=== PATIENT | male | born 1970 | race Two or more races ===

== ENCOUNTER 2018-02-19 13:18 | Observation (INO) | payer SELFPAY ==
[~2018-02-19] VITALS: Ht 162.6 cm; Wt 93.9 kg
--- NOTE | 2018-02-19 13:39 | PHYS DOC ---
Adult General Chief Complaint Chief Complaint: NEURO SYMPTOMS/DEFICITS HPI HPI Patient is a 47 year old male who presents with left upper extremity paresthesia described as a numbness for the entire extremity from the shoulder to the fingers, no dermatomal band described. 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 Patient denies any weakness in the upper or lower extremity. Reports that the numbness is improving over time. This started at 11: 30 this morning. Denies any head injury nor headache nor difficulty seeing. Denies any previous history of this. Patient denies any slurring of speech however with the patient reports that he did have some slurring of speech. Patient also reports that he has some dizziness early on while this was occurring along with a dry mouth. Patient reports that the symptoms seem to be improving over time. Review of Systems Review of Systems Constitutional: Denies fever or chills [] Eyes: Denies change in visual acuity, redness, or eye pain [] HENT: Denies nasal congestion or sore throat [] Respiratory: Denies cough or shortness of breath [] Cardiovascular: No chest pain or palpitations[] GI: Denies abdominal pain, nausea, vomiting, bloody stools or diarrhea [] : Denies dysuria or hematuria [] Musculoskeletal: Denies back pain or joint pain [] Integument: Denies rash or skin lesions [] Neurologic: See history of present illness[] Endocrine: Denies polyuria or polydipsia [] All other systems were reviewed and found to be within normal limits, except as documented in this note. Allergies Allergies Allergies Coded Allergies Type Severity Reaction Last Updated Verified No Known Drug Allergies 02/19/18 No Physical Exam Physical Exam Constitutional: Well developed, well nourished, no acute distress, non-toxic appearance. [] HENT: Normocephalic, atraumatic, bilateral external ears normal, oropharynx moist, no oral exudates, nose normal. [] Eyes: PERRLA, EOMI, conjunctiva normal, no discharge. [] Neck: Normal range of motion, no tenderness, supple, no stridor. [] Cardiovascular:Heart rate regular rhythm, +3/6 murmur [] Lungs & Thorax: Bilateral breath sounds clear to auscultation [] Abdomen: Bowel sounds normal, soft, no tenderness, no masses, no pulsatile masses. [] Skin: Warm, dry, no erythema, no rash. [] Back: No tenderness, no CVA tenderness. [] Extremities: No tenderness, no cyanosis, no clubbing, ROM intact, no edema. [] Neurologic: Alert and oriented X 3, normal motor function, normal sensory function, no focal deficits noted. [] Psychologic: Affect normal, judgement normal, mood normal. NIH stroke scale was 0 [] Current Patient Data Vital Signs Vital Signs Date Time Temp Pulse Resp B/P (MAP) Pulse Ox O2 Delivery O2 Flow Rate FiO2 02/19/18 14:30 92 21 97 02/19/18 13:23 98.4 179/91 (120) Room Air 98.4 Lab Values Laboratory Tests Test 02/19/18 13:54 02/19/18 13:55 02/19/18 14:04 Glucose (Fingerstick) 135 mg/dL (70-99) H White Blood Count 7.2 x10^3/uL (4.0-11.0) Red Blood Count 4.94 x10^6/uL (4.30-5.70) Hemoglobin 15.7 g/dL (13.0-17.5) Hematocrit 43.8 % (39.0-53.0) Mean Corpuscular Volume 89 fL (79-100) Mean Corpuscular Hemoglobin 32 pg (25-35) Mean Corpuscular Hemoglobin Concent 36 g/dL (31-37) Red Cell Distribution Width 12.8 % (11.5-14.5) Platelet Count 296 x10^3/uL (140-400) Prothrombin Time 13.1 SEC (11.7-14.0) Prothrombin Time INR 1.0 (0.8-1.1) PTT 31 SEC (24-38) Sodium Level 138 mmol/L (136-145) Potassium Level 3.5 mmol/L (3.5-5.1) Chloride Level 103 mmol/L (98-107) Carbon Dioxide Level 23 mmol/L (21-32) Anion Gap 12 (6-14) 18 mmol/L (6-14) H Blood Urea Nitrogen 15 mg/dL (8-26) Creatinine 0.8 mg/dL (0.7-1.3) Estimated GFR (Cockcroft-Gault) 103.2 Glucose Level 141 mg/dL (70-99) H 141 mg/dL (70-99) H Calcium Level 8.8 mg/dL (8.5-10.1) POC Hemoglobin 14.6 g/dL (14-18) POC Hematocrit 43 % (37-52) POC Sodium 140 mmol/L (135-145) POC Potassium 3.5 mmol/L (3.5-5.0) POC Chloride 104 mmol/L (98-110) POC Total CO2 22 mmol/L (23-32) L POC Blood Urea Nitrogen 14 mg/dL (8-26) POC Creatinine 0.7 mg/dL (0.5-1.4) POC Ionized Calcium (Radha) 1.16 mmol/L (1.13-1.32) Laboratory Tests 02/19/18 13:55 Laboratory Tests 02/19/18 13:55 02/19/18 14:04 EKG EKG EKG shows normal sinus rhythm, leftward axis, no ST elevation, no old EKG available for comparison, nonspecific ST-T wave changes.[] Radiology/Procedures Radiology/Procedures CT scan of the head showed no acute features [] Course & Med Decision Making Course & Med Decision Making Pertinent Labs and Imaging studies reviewed. (See chart for details) Medical decision making: No evidence of continued stroke symptoms, however concerned about TIA given reported speech abnormalities during this episode as witnessed by patient's . ED course: Patient arrived, was placed in bed, tolerated exam well. Patient was transferred to and from [place] without any complications. Patient remained stable in the emergency department. Patient did not meet criteria for thrombolytic therapy. Due to concern for TIA and given what was thought to be a murmur that patient had no previous information about, consultation was made with the hospitalist service for admission.[] Dragon Disclaimer Dragon Disclaimer This electronic medical record was generated, in whole or in part, using a voice recognition dictation system. Departure Departure Impression: Primary Impression: Transient ischemic attack Disposition: 09 ADMITTED INPATIENT Admitting Physician: Xie. Meeks Condition: STABLE ALEJANDRA GODOY DO Feb 19, 2018 13:39
[2018-02-19 14:03] LABS: HEMATOCRIT 43.8 % (39.0-53.0); HEMOGLOBIN 15.7 g/dL (13.0-17.5); RED BLOOD COUNT 4.94 x10^6/uL (4.30-5.70); RED CELL DISTRIBUTION WIDTH 12.8 % (11.5-14.5); WHITE BLOOD COUNT 7.2 x10^3/uL (4.0-11.0)
--- NOTE | 2018-02-19 14:07 | RAD ---
PQRS Compliance Statement: One or more of the following individualized dose reduction techniques were utilized for this examination: 1. Automated exposure control 2. Adjustment of the mA and/or kV according to patient size 3. Use of iterative reconstruction technique CT HEAD WITHOUT CONTRAST History: L ARM TINGLING SOME SLURRED SPEECH Comparison: None. Procedure: Axial images are obtained of the head from the skull base through the vertex without IV contrast. Findings: The ventricles and sulci are normal for the patient's age. No mass-effect, midline shift, hemorrhage, extra-axial fluid collection, or obvious acute infarction is identified. Basilar cisterns are patent. Bone windows demonstrate no acute calvarial abnormality. Mild mucosal thickening right maxillary sinus. Maxillary sinuses incompletely imaged. The other visualized paranasal sinuses are clear. Mastoid air cells are well aerated. IMPRESSION: No acute intracranial abnormality. Findings discussed with ALEJANDRA GODOY at 02/19/2018 1:59 PM. FOR INTERNAL CODING PURPOSES Critical result: RESULT CODE: (C) Electronically signed by: Fredo Nicholas MD (02/19/2018 2:04 PM) [id number]
[2018-02-19 14:08] LABS: CREATININE ISTAT 0.7 mg/dL (0.5-1.4); HEMOGLOBIN ISTAT 14.6 g/dL (14-18); ION CA ISTAT 1.16 mmol/L (1.13-1.32); POTASSIUM ISTAT 3.5 mmol/L (3.5-5.0)
[2018-02-19 14:14] LABS: PROTHROMBIN TIME PATIENT 13.1 SEC (11.7-14.0)
[2018-02-19 14:15] LABS: CALCIUM 8.8 mg/dL (8.5-10.1); CREATININE 0.8 mg/dL (0.7-1.3); GFR 103.2; POTASSIUM 3.5 mmol/L (3.5-5.1)
--- NOTE | 2018-02-19 15:16 | EKG ---
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
[2018-02-19] MEDS ORDERED: traMADol 50 MG TABLET PO PRN (16:30)
[2018-02-19] MEDS ORDERED: LABETALOL 20 MG/4 ML DISP.SYRIN. IVP PRN (16:30)
[2018-02-19] MEDS ORDERED: ACETAMINOPHEN 325 MG TABLET. PO PRN (16:30)
[2018-02-19] MEDS ORDERED: MORPHINE SULFATE 2 MG/ML VIAL. IV PRN (16:30)
[2018-02-19] MEDS ORDERED: ASPIRIN 325 MG TABLET PO ONE (16:30)
[2018-02-19] MEDS ORDERED: ONDANSETRON PF 4 MG/2 ML VIAL. IV PRN (16:30)
[2018-02-19] MEDS ORDERED: DOCUSATE SODIUM 100 MG CAPSULE. PO PRN (16:30)
--- NOTE | 2018-02-19 16:36 | PDOC1 ---
History and Physical Date of Admission Date of Admission 02/19/18 Identification/Chief Complaint Chief Complaint left arm numbness Source Source: Chart review, Patient History of Present Illness History of Present Illness Patient is a 47 year old male who presents with left upper extremity paresthesia described as a numbness for the entire extremity from the shoulder to the fingers. pt speak cambodian, Gf at bedside helps translation. PT HAS had intermittent left arm numbness and tingling for 1 week, worse today about 11.30am, lasting for 2 hours. He called her and she noticed he had slurry speech, for which pt explained as he did it when he was nervous, for a few minutes. Pt now back to normal, no ext weakness, no swallow problem, no vision or hearing change. no headache. head CT neg. no PMH , BP 170s systolic in ER. smoke and etoh on weekends. Past Medical History Past Medical History none Past Surgical History Past Surgical History: No pertinent history Family History Family History: Hypertension Social History Smoke: <1 pack per day ALCOHOL: social Drugs: None Current Problem List Problem List Problems Medical Problems: (1) Transient ischemic attack Status: Acute Allergies Allergies Allergies Coded Allergies Type Severity Reaction Last Updated Verified No Known Drug Allergies 02/19/18 No ROS Review of System CONSTITUTIONAL: No fever or chills EYES: No recent changes SKIN: No rash or itching CARDIOVASCULAR: No chest pain, syncope, palpitations, or edema RESPIRATORY: No SOB or cough GASTROINTESTINAL: No nausea, vomiting or abdominal pain NEUROLOGICAL: No headaches or weakness ENDOCRINE: No cold or heat intolerance GENITOURINARY: No urgency or frequency of urination MUSCULOSKELETAL: No back pain or joint pain LYMPHATICS: No enlarged lymph nodes PSYCHIATRIC: No anxiety or depression Physical Exam Physical Exam GEN.: No apparent distress. Alert and oriented. HEENT: Head is normocephalic, atraumatic NECK: Supple. LUNGS: Clear to auscultation. HEART: RRR, S1, S2 present. Peripheral pulses intact ABDOMEN: Soft, nontender. Positive bowel sounds. EXTREMITIES: Without any cyanosis. bl ext strength, sensation symmetric, normal. NEUROLOGIC: Normal speech, normal tone PSYCHIATRIC: Normal affect, normal mood. SKIN: No ulcerations Vitals Vitals Vital Signs Date Time Temp Pulse Resp B/P (MAP) Pulse Ox O2 Delivery O2 Flow Rate FiO2 02/19/18 15:15 91 21 98 02/19/18 13:23 98.4 179/91 (120) Room Air 98.4 Labs Labs Laboratory Tests Test 02/19/18 13:54 02/19/18 13:55 02/19/18 14:04 Glucose (Fingerstick) 135 mg/dL (70-99) White Blood Count 7.2 x10^3/uL (4.0-11.0) Red Blood Count 4.94 x10^6/uL (4.30-5.70) Hemoglobin 15.7 g/dL (13.0-17.5) Hematocrit 43.8 % (39.0-53.0) Mean Corpuscular Volume 89 fL (79-100) Mean Corpuscular Hemoglobin 32 pg (25-35) Mean Corpuscular Hemoglobin Concent 36 g/dL (31-37) Red Cell Distribution Width 12.8 % (11.5-14.5) Platelet Count 296 x10^3/uL (140-400) Prothrombin Time 13.1 SEC (11.7-14.0) Prothromb Time International Ratio 1.0 (0.8-1.1) Activated Partial Thromboplast Time 31 SEC (24-38) Sodium Level 138 mmol/L (136-145) Potassium Level 3.5 mmol/L (3.5-5.1) Chloride Level 103 mmol/L (98-107) Carbon Dioxide Level 23 mmol/L (21-32) Anion Gap 12 (6-14) 18 mmol/L (6-14) Blood Urea Nitrogen 15 mg/dL (8-26) Creatinine 0.8 mg/dL (0.7-1.3) Estimated GFR (Cockcroft-Gault) 103.2 Glucose Level 141 mg/dL (70-99) 141 mg/dL (70-99) Calcium Level 8.8 mg/dL (8.5-10.1) Bedside Hemoglobin 14.6 g/dL (14-18) Bedside Hematocrit 43 % (37-52) Bedside Sodium 140 mmol/L (135-145) Bedside Potassium 3.5 mmol/L (3.5-5.0) Bedside Chloride 104 mmol/L (98-110) Bedside Total CO2 22 mmol/L (23-32) Bedside Blood Urea Nitrogen 14 mg/dL (8-26) Bedside Creatinine 0.7 mg/dL (0.5-1.4) Bedside Ionized Calcium (Radha) 1.16 mmol/L (1.13-1.32) Laboratory Tests Test 02/19/18 13:54 02/19/18 13:55 02/19/18 14:04 Glucose (Fingerstick) 135 mg/dL (70-99) White Blood Count 7.2 x10^3/uL (4.0-11.0) Red Blood Count 4.94 x10^6/uL (4.30-5.70) Hemoglobin 15.7 g/dL (13.0-17.5) Hematocrit 43.8 % (39.0-53.0) Mean Corpuscular Volume 89 fL (79-100) Mean Corpuscular Hemoglobin 32 pg (25-35) Mean Corpuscular Hemoglobin Concent 36 g/dL (31-37) Red Cell Distribution Width 12.8 % (11.5-14.5) Platelet Count 296 x10^3/uL (140-400) Prothrombin Time 13.1 SEC (11.7-14.0) Prothromb Time International Ratio 1.0 (0.8-1.1) Activated Partial Thromboplast Time 31 SEC (24-38) Sodium Level 138 mmol/L (136-145) Potassium Level 3.5 mmol/L (3.5-5.1) Chloride Level 103 mmol/L (98-107) Carbon Dioxide Level 23 mmol/L (21-32) Anion Gap 12 (6-14) 18 mmol/L (6-14) Blood Urea Nitrogen 15 mg/dL (8-26) Creatinine 0.8 mg/dL (0.7-1.3) Estimated GFR (Cockcroft-Gault) 103.2 Glucose Level 141 mg/dL (70-99) 141 mg/dL (70-99) Calcium Level 8.8 mg/dL (8.5-10.1) Bedside Hemoglobin 14.6 g/dL (14-18) Bedside Hematocrit 43 % (37-52) Bedside Sodium 140 mmol/L (135-145) Bedside Potassium 3.5 mmol/L (3.5-5.0) Bedside Chloride 104 mmol/L (98-110) Bedside Total CO2 22 mmol/L (23-32) Bedside Blood Urea Nitrogen 14 mg/dL (8-26) Bedside Creatinine 0.7 mg/dL (0.5-1.4) Bedside Ionized Calcium (Radha) 1.16 mmol/L (1.13-1.32) VTE Prophylaxis Ordered VTE Prophylaxis Devices: Yes VTE Pharmacological Prophylaxi: Yes Assessment/Plan Assessment/Plan left arm numbness/tingling HTN plan; neuro consult MRI BRain and cervical asa x1 check lipid panel keep bp high for today, meds if needed tmr dvt ppx GLENDA JONES MD Feb 19, 2018 16:36
[2018-02-19] MEDS ORDERED: ENOXAPARIN 40 MG/0.4 ML SYRINGE. SQ SCH (17:00)
--- NOTE | 2018-02-19 17:25 | PDOC2 ---
NEUROLOGY CONSULT Date of Admission Date of Admission DATE: 02/19/18 TIME: 17:21 Reason for Consult Reason for Consult: Left arm numbness Referring Physician Referring Physician: Dr. Herring Source Source: Caregiver, Chart review, Patient History of Present Illness History of Present Illness The patient is a 47-year-old right-handed male who at about 11:30 AM today had some left arm numbness. This was numbness in the entire left arm. He has been having some numbness and pain in the hand for about a week off and on. He also had a hand injury several years ago and has occasional pain from that. For me he denies any dysarthria but he did tell the emergency room doctor that there was dysarthria. There is no diplopia, dysphagia, numbness or weakness elsewhere. Right now he is feeling 100% back to normal. There is no history of migraine headache, seizure, or head injury. 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 Current Medications Current Medications Current Medications Aspirin (Martita Aspirin) 325 mg 1X ONCE PO ; Start 02/19/18 at 16:30; Stop at 16:38; Status DC Acetaminophen (Tylenol) 650 mg PRN Q6HRS PRN PO FEVER; Start 02/19/18 at 16:30 Ondansetron HCl (Zofran) 4 mg PRN Q6HRS PRN IV NAUSEA/VOMITING; Start at 16:30 Morphine Sulfate (Morphine Sulfate) 2 mg PRN Q2HR PRN IV MODERATE TO SEVERE PAIN; Start 02/19/18 at 16:30 Tramadol HCl (Ultram) 50 mg PRN Q6HRS PRN PO MILD TO MODERATE PAIN; Start at 16:30 Docusate Sodium (Colace) 100 mg PRN DAILY PRN PO CONSTIPATION; Start 02/19/18 at 16:30 Labetalol HCl (Normodyne Iv Push) 20 mg PRN Q2HR PRN IVP HYPERTENSION, SEE COMMENTS; Start 02/19/18 at 16:30 Enoxaparin Sodium (Lovenox 40mg Syringe) 40 mg Q24H SQ ; Start 02/19/18 at 17: 00 Allergies Allergies: Coded Allergies: No Known Drug Allergies (Unverified , 02/19/18) ROS Review of System Patient denies fevers, chills, weight loss, dyspnea, angina, abdominal pain, change in bowels, or dysuria. 14-point review of systems is negative. Physical Exam Physical Examination General: Well-developed, well-nourished, male, in no acute distress HEENT: Normocephalic andatraumatic. Temporal arteriespulsatile and nontender. Neck: Supple without bruit, no meningismus Musculoskeletal: Stability:see neurologic. Gait exam:see neurologic. Tone:see neurologic. Strength:see neurologic. Neurological: Mental Status:intact, orientation, memory, attention span/concentration, language, fund of knowledge normal. Cranial Nerves:Pupils equal and reactive to light, extraocular movements areintact, visual muniz are full to confrontation. Facial sensation is normal. There is no facial asymmetry. Vestibulo-ocular reflex is intact. Palate elvates and tongue protrudes in midline. All other cranial related problems are negative except as mentioned before.Reflexes:2+ and symmetric with flexor plantar responses. Motor:5/5 strength with normal tone and bulk. Coordination:Finger-nose finger and heel-to -andrew testing are normal. Rapid alternating movements and fine finger movements are intact. Gait:Normal, including tandem. Sensory:Normal pinprick, vibration , light touch, proprioception. Vitals VITALS Vital Signs Date Time Temp Pulse Resp B/P (MAP) Pulse Ox O2 Delivery O2 Flow Rate FiO2 02/19/18 16:47 Room Air 02/19/18 16:15 88 21 97 02/19/18 13:23 98.4 179/91 (120) 98.4 Labs Labs Laboratory Tests Test 02/19/18 13:54 02/19/18 13:55 02/19/18 14:04 Glucose (Fingerstick) 135 mg/dL (70-99) White Blood Count 7.2 x10^3/uL (4.0-11.0) Red Blood Count 4.94 x10^6/uL (4.30-5.70) Hemoglobin 15.7 g/dL (13.0-17.5) Hematocrit 43.8 % (39.0-53.0) Mean Corpuscular Volume 89 fL (79-100) Mean Corpuscular Hemoglobin 32 pg (25-35) Mean Corpuscular Hemoglobin Concent 36 g/dL (31-37) Red Cell Distribution Width 12.8 % (11.5-14.5) Platelet Count 296 x10^3/uL (140-400) Prothrombin Time 13.1 SEC (11.7-14.0) Prothromb Time International Ratio 1.0 (0.8-1.1) Activated Partial Thromboplast Time 31 SEC (24-38) Sodium Level 138 mmol/L (136-145) Potassium Level 3.5 mmol/L (3.5-5.1) Chloride Level 103 mmol/L (98-107) Carbon Dioxide Level 23 mmol/L (21-32) Anion Gap 12 (6-14) 18 mmol/L (6-14) Blood Urea Nitrogen 15 mg/dL (8-26) Creatinine 0.8 mg/dL (0.7-1.3) Estimated GFR (Cockcroft-Gault) 103.2 Glucose Level 141 mg/dL (70-99) 141 mg/dL (70-99) Calcium Level 8.8 mg/dL (8.5-10.1) Bedside Hemoglobin 14.6 g/dL (14-18) Bedside Hematocrit 43 % (37-52) Bedside Sodium 140 mmol/L (135-145) Bedside Potassium 3.5 mmol/L (3.5-5.0) Bedside Chloride 104 mmol/L (98-110) Bedside Total CO2 22 mmol/L (23-32) Bedside Blood Urea Nitrogen 14 mg/dL (8-26) Bedside Creatinine 0.7 mg/dL (0.5-1.4) Bedside Ionized Calcium (Radha) 1.16 mmol/L (1.13-1.32) Laboratory Tests Test 02/19/18 13:54 02/19/18 13:55 02/19/18 14:04 Glucose (Fingerstick) 135 mg/dL (70-99) White Blood Count 7.2 x10^3/uL (4.0-11.0) Red Blood Count 4.94 x10^6/uL (4.30-5.70) Hemoglobin 15.7 g/dL (13.0-17.5) Hematocrit 43.8 % (39.0-53.0) Mean Corpuscular Volume 89 fL (79-100) Mean Corpuscular Hemoglobin 32 pg (25-35) Mean Corpuscular Hemoglobin Concent 36 g/dL (31-37) Red Cell Distribution Width 12.8 % (11.5-14.5) Platelet Count 296 x10^3/uL (140-400) Prothrombin Time 13.1 SEC (11.7-14.0) Prothromb Time International Ratio 1.0 (0.8-1.1) Activated Partial Thromboplast Time 31 SEC (24-38) Sodium Level 138 mmol/L (136-145) Potassium Level 3.5 mmol/L (3.5-5.1) Chloride Level 103 mmol/L (98-107) Carbon Dioxide Level 23 mmol/L (21-32) Anion Gap 12 (6-14) 18 mmol/L (6-14) Blood Urea Nitrogen 15 mg/dL (8-26) Creatinine 0.8 mg/dL (0.7-1.3) Estimated GFR (Cockcroft-Gault) 103.2 Glucose Level 141 mg/dL (70-99) 141 mg/dL (70-99) Calcium Level 8.8 mg/dL (8.5-10.1) Bedside Hemoglobin 14.6 g/dL (14-18) Bedside Hematocrit 43 % (37-52) Bedside Sodium 140 mmol/L (135-145) Bedside Potassium 3.5 mmol/L (3.5-5.0) Bedside Chloride 104 mmol/L (98-110) Bedside Total CO2 22 mmol/L (23-32) Bedside Blood Urea Nitrogen 14 mg/dL (8-26) Bedside Creatinine 0.7 mg/dL (0.5-1.4) Bedside Ionized Calcium (Radha) 1.16 mmol/L (1.13-1.32) Images Images CT head: The ventricles and sulci are normal for the patient's age. No mass-effect, midline shift, hemorrhage, extra-axial fluid collection, or obvious acute infarction is identified. Basilar cisterns are patent. Bone windows demonstrate no acute calvarial abnormality. Mild mucosal thickening right maxillary sinus. Maxillary sinuses incompletely imaged. The other visualized paranasal sinuses are clear. Mastoid air cells are well aerated. IMPRESSION: No acute intracranial abnormality. Assessment/Plan Assessment/Plan Impression: Transient numbness in the entire left upper extremity unlikely to be due to organic neurological disease, but still keep in mind transient ischemic attack, other intracranial process, cervical radiculopathy, embellishment on peripheral nerve entrapment such as carpal tunnel syndrome. Recommendations: Agree with MRI of the brain and cervical spine Carotid Doppler studies Echocardiogram Aspirin Rehabilitation screening Check lipids Not an alteplase candidate, not likely to even have a stroke Aiming for discharge tomorrow If inpatient workup is negative and symptoms persist he could come to my office for an outpatient EMG study. Thank you for letting me help with the patient's care. CARLY MARTINEZ MD Feb 19, 2018 17:25
[2018-02-19 17:53] VITALS: BP 122/82
[2018-02-19 19:56] VITALS: BP 148/78
[2018-02-19 23:12] VITALS: BP 137/47
[2018-02-20 03:12] VITALS: BP 121/71
[2018-02-20 05:03] LABS: BASO % 1 % (0-3); EOS # 0.2 x10^3/uL (0.0-0.7); EOS % 3 % (0-3); HEMATOCRIT 43.9 % (39.0-53.0); HEMOGLOBIN 15.4 g/dL (13.0-17.5); LYMPH # 2.8 x10^3/uL (1.0-4.8); LYMPH % 39 % (24-48); MEAN CORPUSCULAR HEMOGLOBIN 31 pg (25-35); MEAN CORPUSCULAR HGB CONC 35 g/dL (31-37); MEAN CORPUSCULAR VOLUME 88 fL (79-100); MONO # 0.6 x10^3/uL (0.0-1.1); MONO % 8 % (0-9); NEUT # 3.6 x10^3uL (1.8-7.7); NEUT % 50 % (31-73); PLATELET COUNT 264 x10^3/uL (140-400); RED BLOOD COUNT 4.97 x10^6/uL (4.30-5.70); RED CELL DISTRIBUTION WIDTH 12.7 % (11.5-14.5); WHITE BLOOD COUNT 7.2 x10^3/uL (4.0-11.0)
[2018-02-20 05:26] LABS: CALCIUM 8.8 mg/dL (8.5-10.1); CREATININE 0.9 mg/dL (0.7-1.3); GFR 90.1; POTASSIUM 3.7 mmol/L (3.5-5.1)
[2018-02-20 05:41] LABS: CHOLESTEROL/HDL RATIO 5.3
[2018-02-20 07:05] VITALS: BP 124/74
[2018-02-20] MEDS ORDERED: ASPIRIN ENTERIC COATED 325 MG TABLET.DR. PO SCH (08:00)
--- NOTE | 2018-02-20 08:32 | RAD ---
MRI Brain without contrast History:LEFT ARM NUMBNESS Technique: Multiplanar, multisequential noncontrast MR imaging was performed of the brain. Contrast: None Comparison: None Findings: There is some motion degradation. There is no evidence of recent infarct or cytotoxic edema. The ventricles, sulci, and cisterns are within normal limits in size and configuration. There is no significant midline shift, intraaxial mass effect, or focal abnormal extra-axial fluid collection. There is no significant signal abnormality including hemosiderin deposition of the brain parenchyma. There is preservation of the major intracranial flow-voids at the skull base. The mastoid air cells are aerated. The cerebellar tonsils are normal in location. There is no significant abnormality of the pineal gland or pituitary gland. There is [id number] right greater than left maxillary sinus mucosal thickening near the floors, also patchy mild ethmoid air cell mucosal thickening greater on the left. There are likely mucous retention cysts near the floors of the maxillary sinuses, up to about 1.3 cm of the right. Frontal sinus is not significantly pneumatized. There is preserved marrow signal of the clivus. Impression: 1. There is no evidence of recent infarct or intracranial mass effect, no significant intracranial abnormality. Electronically signed by: Sushant Catalan MD (02/20/2018 8:29 AM) [id number]
--- NOTE | 2018-02-20 08:51 | RAD ---
MRI Cervical Spine Without Contrast History: Left arm numbness Technique: Multiplanar, multi sequential noncontrast MR imaging was performed of the cervical spine. Comparison: None Findings: Cervical cord caliber is within normal limits without defined or expansile signal change, some artifact of the cord which limits accurate evaluation for subtle signal change. There is no significant marrow edema. Cervical vertebral body stature and AP alignment are within within normal limits. There is mild disc desiccation C4-5 to C6-7, very mild narrowing of the C6-7 intervertebral disc space. There is likely posterior annular tear at C3-4-5. There is no significant abnormality of the cervical medullary junction. C2-C3: Spinal canal and neural foramina are adequate. C3-C4: Neural foramina and spinal canal are adequate. C4-C5: There is right facet hypertrophic change. There is negligible disc osteophyte complex. Central canal is minimally narrowed to 9 to 10 mm in part on a developmental basis in combination with minimal disc osteophyte complex. Neural foramina are overall adequate. C5-C6: There is minimal disc osteophyte complex and shallow central protrusion, central canal narrowed to about 8 mm. Neural foramina are adequate. C6-C7: There is disc osteophyte complex, superimposed bulge/protrusions more eccentric to the lateral recesses bilaterally. Central canal is borderline about 10 mm, mild lateral recess stenosis bilaterally somewhat greater on the left. There is mild uncovertebral degenerative change. There is mild narrowing of the left neural foramen, right neural foramen overall adequate. C7-T1: Spinal canal and neural foramina are adequate. Impression: 1. There is mild lateral recess stenosis bilaterally somewhat greater on the left at C6-7 by bulge/protrusions superimposed on minimal disc osteophyte complex, also mild spinal stenosis on the order of 8 mm at C5-C6 and to a lesser degree at C4-5. There is mild narrowing the left C6-7 neural foramen. There is mild disc desiccation C4-5 to C6-7, mild spondylosis. Electronically signed by: Sushant Catalan MD (02/20/2018 8:48 AM) [id number]
--- NOTE | 2018-02-20 10:34 | PDOC ---
PROGRESS NOTES History of Present Illness History of Present Illness Assessment/Plan Assessment/Plan left arm numbness/tingling mild lateral recess stenosis bilaterally somewhat greater on the left at C6-7 by bulge/protrusions superimposed on minimal disc osteophyte complex, also mild spinal stenosis on the order of 8 mm at C5-C6 and to a lesser degree at C4-5 by mri HTN carotids no stenosis plan; neuro ok with discharge MRI BRain and cervical reviewed asa x1 fasting lipid panel see DR Russell for emg as outpt Vitals Vitals Vital Signs Date Time Temp Pulse Resp B/P (MAP) Pulse Ox O2 Delivery O2 Flow Rate FiO2 02/20/18 07:05 97.9 66 18 124/74 (91) 98 Room Air 97.9 Physical Exam General: Alert, Oriented X3, Cooperative Heart: Regular rate, Normal S1, Normal S2 Lungs: Clear Abdomen: Normal bowel sounds, Soft Extremities: No cyanosis Skin: No significant lesion Labs LABS History: Left arm numbness Technique: Multiplanar, multi sequential noncontrast MR imaging was performed of the cervical spine. Comparison: None Findings: Cervical cord caliber is within normal limits without defined or expansile signal change, some artifact of the cord which limits accurate evaluation for subtle signal change. There is no significant marrow edema. Cervical vertebral body stature and AP alignment are within within normal limits. There is mild disc desiccation C4-5 to C6-7, very mild narrowing of the C6-7 intervertebral disc space. There is likely posterior annular tear at C3-4-5. There is no significant abnormality of the cervical medullary junction. C2-C3: Spinal canal and neural foramina are adequate. C3-C4: Neural foramina and spinal canal are adequate. C4-C5: There is right facet hypertrophic change. There is negligible disc osteophyte complex. Central canal is minimally narrowed to 9 to 10 mm in part on a developmental basis in combination with minimal disc osteophyte complex. Neural foramina are overall adequate. C5-C6: There is minimal disc osteophyte complex and shallow central protrusion, central canal narrowed to about 8 mm. Neural foramina are adequate. C6-C7: There is disc osteophyte complex, superimposed bulge/protrusions more eccentric to the lateral recesses bilaterally. Central canal is borderline about 10 mm, mild lateral recess stenosis bilaterally somewhat greater on the left. There is mild uncovertebral degenerative change. There is mild narrowing of the left neural foramen, right neural foramen overall adequate. C7-T1: Spinal canal and neural foramina are adequate. Impression: 1. There is mild lateral recess stenosis bilaterally somewhat greater on the left at C6-7 by bulge/protrusions superimposed on minimal disc osteophyte complex, also mild spinal stenosis on the order of 8 mm at C5-C6 and to a lesser degree at C4-5. There is mild narrowing the left C6-7 neural foramen. There is mild disc desiccation C4-5 to C6-7, mild spondylosis. Electronically signed by: Sushant Catalan MD (02/20/2018 8:48 AM) [place] [id number] MRI Brain without contrast History:LEFT ARM NUMBNESS Technique: Multiplanar, multisequential noncontrast MR imaging was performed of the brain. Contrast: None Comparison: None Findings: There is some motion degradation. There is no evidence of recent infarct or cytotoxic edema. The ventricles, sulci, and cisterns are within normal limits in size and configuration. There is no significant midline shift, intraaxial mass effect, or focal abnormal extra-axial fluid collection. There is no significant signal abnormality including hemosiderin deposition of the brain parenchyma. There is preservation of the major intracranial flow-voids at the skull base. The mastoid air cells are aerated. The cerebellar tonsils are normal in location. There is no significant abnormality of the pineal gland or pituitary gland. There is [id number] right greater than left maxillary sinus mucosal thickening near the floors, also patchy mild ethmoid air cell mucosal thickening greater on the left. There are likely mucous retention cysts near the floors of the maxillary sinuses, up to about 1.3 cm of the right. Frontal sinus is not significantly pneumatized. There is preserved marrow signal of the clivus. Impression: 1. There is no evidence of recent infarct or intracranial mass effect, no significant intracranial abnormality. Electronically signed by: Sushant Catalan MD (02/20/2018 8:29 AM) [place] [id number] Laboratory Tests Test 02/19/18 13:54 02/19/18 13:55 02/19/18 14:04 02/20/18 04:20 Glucose (Fingerstick) 135 mg/dL (70-99) White Blood Count 7.2 x10^3/uL (4.0-11.0) 7.2 x10^3/uL (4.0-11.0) Red Blood Count 4.94 x10^6/uL (4.30-5.70) 4.97 x10^6/uL (4.30-5.70) Hemoglobin 15.7 g/dL (13.0-17.5) 15.4 g/dL (13.0-17.5) Hematocrit 43.8 % (39.0-53.0) 43.9 % (39.0-53.0) Mean Corpuscular Volume 89 fL (79-100) 88 fL (79-100) Mean Corpuscular Hemoglobin 32 pg (25-35) 31 pg (25-35) Mean Corpuscular Hemoglobin Concent 36 g/dL (31-37) 35 g/dL (31-37) Red Cell Distribution Width 12.8 % (11.5-14.5) 12.7 % (11.5-14.5) Platelet Count 296 x10^3/uL (140-400) 264 x10^3/uL (140-400) Prothrombin Time 13.1 SEC (11.7-14.0) Prothromb Time International Ratio 1.0 (0.8-1.1) Activated Partial Thromboplast Time 31 SEC (24-38) Sodium Level 138 mmol/L (136-145) 140 mmol/L (136-145) Potassium Level 3.5 mmol/L (3.5-5.1) 3.7 mmol/L (3.5-5.1) Chloride Level 103 mmol/L (98-107) 103 mmol/L (98-107) Carbon Dioxide Level 23 mmol/L (21-32) 24 mmol/L (21-32) Anion Gap 12 (6-14) 18 mmol/L (6-14) 13 (6-14) Blood Urea Nitrogen 15 mg/dL (8-26) 15 mg/dL (8-26) Creatinine 0.8 mg/dL (0.7-1.3) 0.9 mg/dL (0.7-1.3) Estimated GFR (Cockcroft-Gault) 103.2 90.1 Glucose Level 141 mg/dL (70-99) 141 mg/dL (70-99) 122 mg/dL (70-99) Calcium Level 8.8 mg/dL (8.5-10.1) 8.8 mg/dL (8.5-10.1) Bedside Hemoglobin 14.6 g/dL (14-18) Bedside Hematocrit 43 % (37-52) Bedside Sodium 140 mmol/L (135-145) Bedside Potassium 3.5 mmol/L (3.5-5.0) Bedside Chloride 104 mmol/L (98-110) Bedside Total CO2 22 mmol/L (23-32) Bedside Blood Urea Nitrogen 14 mg/dL (8-26) Bedside Creatinine 0.7 mg/dL (0.5-1.4) Bedside Ionized Calcium (Radha) 1.16 mmol/L (1.13-1.32) Neutrophils (%) (Auto) 50 % (31-73) Lymphocytes (%) (Auto) 39 % (24-48) Monocytes (%) (Auto) 8 % (0-9) Eosinophils (%) (Auto) 3 % (0-3) Basophils (%) (Auto) 1 % (0-3) Neutrophils # (Auto) 3.6 x10^3uL (1.8-7.7) Lymphocytes # (Auto) 2.8 x10^3/uL (1.0-4.8) Monocytes # (Auto) 0.6 x10^3/uL (0.0-1.1) Eosinophils # (Auto) 0.2 x10^3/uL (0.0-0.7) Basophils # (Auto) 0.0 x10^3/uL (0.0-0.2) Triglycerides Level 249 mg/dL (0-150) Cholesterol Level 187 mg/dL (0-200) LDL Cholesterol, Calculated 102 mg/dL (0-100) VLDL Cholesterol, Calculated 50 mg/dL (0-40) Non-HDL Cholesterol Calculated 152 mg/dL (0-129) HDL Cholesterol 35 mg/dL (40-60) Cholesterol/HDL Ratio 5.3 Assessment and Plan Assessmemt and Plan Problems Medical Problems: (1) Transient ischemic attack Status: Acute Comment Review of Relevant I have reviewed the following items oniel (where applicable) has been applied. Labs Laboratory Tests Test 02/19/18 13:54 02/19/18 13:55 02/19/18 14:04 11/1/18 04:20 Glucose (Fingerstick) 135 mg/dL (70-99) White Blood Count 7.2 x10^3/uL (4.0-11.0) 7.2 x10^3/uL (4.0-11.0) Red Blood Count 4.94 x10^6/uL (4.30-5.70) 4.97 x10^6/uL (4.30-5.70) Hemoglobin 15.7 g/dL (13.0-17.5) 15.4 g/dL (13.0-17.5) Hematocrit 43.8 % (39.0-53.0) 43.9 % (39.0-53.0) Mean Corpuscular Volume 89 fL (79-100) 88 fL (79-100) Mean Corpuscular Hemoglobin 32 pg (25-35) 31 pg (25-35) Mean Corpuscular Hemoglobin Concent 36 g/dL (31-37) 35 g/dL (31-37) Red Cell Distribution Width 12.8 % (11.5-14.5) 12.7 % (11.5-14.5) Platelet Count 296 x10^3/uL (140-400) 264 x10^3/uL (140-400) Prothrombin Time 13.1 SEC (11.7-14.0) Prothromb Time International Ratio 1.0 (0.8-1.1) Activated Partial Thromboplast Time 31 SEC (24-38) Sodium Level 138 mmol/L (136-145) 140 mmol/L (136-145) Potassium Level 3.5 mmol/L (3.5-5.1) 3.7 mmol/L (3.5-5.1) Chloride Level 103 mmol/L (98-107) 103 mmol/L (98-107) Carbon Dioxide Level 23 mmol/L (21-32) 24 mmol/L (21-32) Anion Gap 12 (6-14) 18 mmol/L (6-14) 13 (6-14) Blood Urea Nitrogen 15 mg/dL (8-26) 15 mg/dL (8-26) Creatinine 0.8 mg/dL (0.7-1.3) 0.9 mg/dL (0.7-1.3) Estimated GFR (Cockcroft-Gault) 103.2 90.1 Glucose Level 141 mg/dL (70-99) 141 mg/dL (70-99) 122 mg/dL (70-99) Calcium Level 8.8 mg/dL (8.5-10.1) 8.8 mg/dL (8.5-10.1) Bedside Hemoglobin 14.6 g/dL (14-18) Bedside Hematocrit 43 % (37-52) Bedside Sodium 140 mmol/L (135-145) Bedside Potassium 3.5 mmol/L (3.5-5.0) Bedside Chloride 104 mmol/L (98-110) Bedside Total CO2 22 mmol/L (23-32) Bedside Blood Urea Nitrogen 14 mg/dL (8-26) Bedside Creatinine 0.7 mg/dL (0.5-1.4) Bedside Ionized Calcium (Radha) 1.16 mmol/L (1.13-1.32) Neutrophils (%) (Auto) 50 % (31-73) Lymphocytes (%) (Auto) 39 % (24-48) Monocytes (%) (Auto) 8 % (0-9) Eosinophils (%) (Auto) 3 % (0-3) Basophils (%) (Auto) 1 % (0-3) Neutrophils # (Auto) 3.6 x10^3uL (1.8-7.7) Lymphocytes # (Auto) 2.8 x10^3/uL (1.0-4.8) Monocytes # (Auto) 0.6 x10^3/uL (0.0-1.1) Eosinophils # (Auto) 0.2 x10^3/uL (0.0-0.7) Basophils # (Auto) 0.0 x10^3/uL (0.0-0.2) Triglycerides Level 249 mg/dL (0-150) Cholesterol Level 187 mg/dL (0-200) LDL Cholesterol, Calculated 102 mg/dL (0-100) VLDL Cholesterol, Calculated 50 mg/dL (0-40) Non-HDL Cholesterol Calculated 152 mg/dL (0-129) HDL Cholesterol 35 mg/dL (40-60) Cholesterol/HDL Ratio 5.3 Laboratory Tests Test 02/19/18 13:54 02/19/18 13:55 02/19/18 14:04 02/20/18 04:20 Glucose (Fingerstick) 135 mg/dL (70-99) White Blood Count 7.2 x10^3/uL (4.0-11.0) 7.2 x10^3/uL (4.0-11.0) Red Blood Count 4.94 x10^6/uL (4.30-5.70) 4.97 x10^6/uL (4.30-5.70) Hemoglobin 15.7 g/dL (13.0-17.5) 15.4 g/dL (13.0-17.5) Hematocrit 43.8 % (39.0-53.0) 43.9 % (39.0-53.0) Mean Corpuscular Volume 89 fL (79-100) 88 fL (79-100) Mean Corpuscular Hemoglobin 32 pg (25-35) 31 pg (25-35) Mean Corpuscular Hemoglobin Concent 36 g/dL (31-37) 35 g/dL (31-37) Red Cell Distribution Width 12.8 % (11.5-14.5) 12.7 % (11.5-14.5) Platelet Count 296 x10^3/uL (140-400) 264 x10^3/uL (140-400) Prothrombin Time 13.1 SEC (11.7-14.0) Prothromb Time International Ratio 1.0 (0.8-1.1) Activated Partial Thromboplast Time 31 SEC (24-38) Sodium Level 138 mmol/L (136-145) 140 mmol/L (136-145) Potassium Level 3.5 mmol/L (3.5-5.1) 3.7 mmol/L (3.5-5.1) Chloride Level 103 mmol/L (98-107) 103 mmol/L (98-107) Carbon Dioxide Level 23 mmol/L (21-32) 24 mmol/L (21-32) Anion Gap 12 (6-14) 18 mmol/L (6-14) 13 (6-14) Blood Urea Nitrogen 15 mg/dL (8-26) 15 mg/dL (8-26) Creatinine 0.8 mg/dL (0.7-1.3) 0.9 mg/dL (0.7-1.3) Estimated GFR (Cockcroft-Gault) 103.2 90.1 Glucose Level 141 mg/dL (70-99) 141 mg/dL (70-99) 122 mg/dL (70-99) Calcium Level 8.8 mg/dL (8.5-10.1) 8.8 mg/dL (8.5-10.1) Bedside Hemoglobin 14.6 g/dL (14-18) Bedside Hematocrit 43 % (37-52) Bedside Sodium 140 mmol/L (135-145) Bedside Potassium 3.5 mmol/L (3.5-5.0) Bedside Chloride 104 mmol/L (98-110) Bedside Total CO2 22 mmol/L (23-32) Bedside Blood Urea Nitrogen 14 mg/dL (8-26) Bedside Creatinine 0.7 mg/dL (0.5-1.4) Bedside Ionized Calcium (Radha) 1.16 mmol/L (1.13-1.32) Neutrophils (%) (Auto) 50 % (31-73) Lymphocytes (%) (Auto) 39 % (24-48) Monocytes (%) (Auto) 8 % (0-9) Eosinophils (%) (Auto) 3 % (0-3) Basophils (%) (Auto) 1 % (0-3) Neutrophils # (Auto) 3.6 x10^3uL (1.8-7.7) Lymphocytes # (Auto) 2.8 x10^3/uL (1.0-4.8) Monocytes # (Auto) 0.6 x10^3/uL (0.0-1.1) Eosinophils # (Auto) 0.2 x10^3/uL (0.0-0.7) Basophils # (Auto) 0.0 x10^3/uL (0.0-0.2) Triglycerides Level 249 mg/dL (0-150) Cholesterol Level 187 mg/dL (0-200) LDL Cholesterol, Calculated 102 mg/dL (0-100) VLDL Cholesterol, Calculated 50 mg/dL (0-40) Non-HDL Cholesterol Calculated 152 mg/dL (0-129) HDL Cholesterol 35 mg/dL (40-60) Cholesterol/HDL Ratio 5.3 Medications Current Medications Aspirin (Martita Aspirin) 325 mg 1X ONCE PO Last administered on 02/19/18at 22: 20; Start 02/19/18 at 16:30; Stop 02/19/18 at 16:38; Status DC Acetaminophen (Tylenol) 650 mg PRN Q6HRS PRN PO FEVER; Start 02/19/18 at 16:30 Ondansetron HCl (Zofran) 4 mg PRN Q6HRS PRN IV NAUSEA/VOMITING; Start at 16:30 Morphine Sulfate (Morphine Sulfate) 2 mg PRN Q2HR PRN IV MODERATE TO SEVERE PAIN; Start 02/19/18 at 16:30 Tramadol HCl (Ultram) 50 mg PRN Q6HRS PRN PO MILD TO MODERATE PAIN; Start at 16:30 Docusate Sodium (Colace) 100 mg PRN DAILY PRN PO CONSTIPATION; Start 02/19/18 at 16:30 Labetalol HCl (Normodyne Iv Push) 20 mg PRN Q2HR PRN IVP HYPERTENSION, SEE COMMENTS; Start 02/19/18 at 16:30 Enoxaparin Sodium (Lovenox 40mg Syringe) 40 mg Q24H SQ Last administered on at 22:20; Start 02/19/18 at 17:00 Aspirin (Ecotrin) 325 mg [id number] PO Last administered on 02/20/18at 08:32; Start 02/20/18 at 08:00 Vitals/I & O Vital Sign - Last 24 Hours 02/19/18 02/19/18 02/19/18 02/19/18 13:20 13:23 13:35 13:45 Temp 98.4 98.4 Pulse 57 97 96 97 Resp 18 20 B/P (MAP) 179/91 (120) Pulse Ox 99 98 98 100 O2 Delivery Room Air 02/19/18 02/19/18 02/19/18 02/19/18 14:00 14:15 14:30 14:45 Pulse 91 89 92 95 Resp 17 Pulse Ox 98 96 97 96 02/19/18 02/19/18 02/19/18 02/19/18 15:00 15:15 15:30 16:00 Pulse 89 91 88 107 Resp 23 Pulse Ox 97 98 98 02/19/18 02/19/18 02/19/18 02/19/18 16:15 16:47 17:53 19:56 Temp 98.7 98.2 98.7 98.2 Pulse 88 90 73 Resp 20 20 B/P (MAP) 122/82 (95) 148/78 (101) Pulse Ox 97 97 98 O2 Delivery Room Air Room Air Room Air 02/19/18 02/19/18 02/20/18 02/20/18 20:00 23:12 03:12 07:05 Temp 97.9 98.1 97.9 97.9 98.1 97.9 Pulse 66 63 66 Resp 20 20 18 B/P (MAP) 137/47 (77) 121/71 (88) 124/74 (91) Pulse Ox 98 98 98 O2 Delivery Room Air Room Air Room Air Room Air Intake and Output 02/19/18 02/19/18 02/20/18 15:00 23:00 07:00 Intake Total 0 ml 400 ml Balance 0 ml 400 ml GILLES BRENNAN MD Feb 20, 2018 10:33
[2018-02-20 11:11] VITALS: BP 139/83
[2018-02-20 15:10] VITALS: BP 127/74
--- NOTE | 2018-02-20 15:32 | PDOC3 ---
Discharge Summary Date of Admission: Feb 19, 2018 Date of Discharge: Feb 20, 2018 Follow-Up: 3-5 days Admitting Diagnosis comment: History of Present Illness History of Present Illness Assessment/Plan Assessment/Plan left arm numbness/tingling mild lateral recess stenosis bilaterally somewhat greater on the left at C6-7 by bulge/protrusions superimposed on minimal disc osteophyte complex, also mild spinal stenosis on the order of 8 mm at C5-C6 and to a lesser degree at C4-5 by mri HTN carotids no stenosis plan; neuro ok with discharge MRI BRain and cervical reviewed asa x1 fasting lipid panel see DR Russell for emg as outpt Vitals Vitals Vital Signs Date Time Temp Pulse Resp B/P (MAP) Pulse Ox O2 Delivery O2 Flow Rate FiO2 02/20/18 07:05 97.9 66 18 124/74 (91) 98 Room Air 97.9 Physical Exam General: Alert, Oriented X3, Cooperative Heart: Regular rate, Normal S1, Normal S2 Lungs: Clear Abdomen: Normal bowel sounds, Soft Extremities: No cyanosis Skin: No significant lesion Labs LABS History: Left arm numbness Technique: Multiplanar, multi sequential noncontrast MR imaging was performed of the cervical spine. Comparison: None Findings: Cervical cord caliber is within normal limits without defined or expansile signal change, some artifact of the cord which limits accurate evaluation for subtle signal change. There is no significant marrow edema. Cervical vertebral body stature and AP alignment are within within normal limits. There is mild disc desiccation C4-5 to C6-7, very mild narrowing of the C6-7 intervertebral disc space. There is likely posterior annular tear at C3-4-5. There is no significant abnormality of the cervical medullary junction. C2-C3: Spinal canal and neural foramina are adequate. C3-C4: Neural foramina and spinal canal are adequate. C4-C5: There is right facet hypertrophic change. There is negligible disc osteophyte complex. Central canal is minimally narrowed to 9 to 10 mm in part on a developmental basis in combination with minimal disc osteophyte complex. Neural foramina are overall adequate. C5-C6: There is minimal disc osteophyte complex and shallow central protrusion, central canal narrowed to about 8 mm. Neural foramina are adequate. C6-C7: There is disc osteophyte complex, superimposed bulge/protrusions more eccentric to the lateral recesses bilaterally. Central canal is borderline about 10 mm, mild lateral recess stenosis bilaterally somewhat greater on the left. There is mild uncovertebral degenerative change. There is mild narrowing of the left neural foramen, right neural foramen overall adequate. C7-T1: Spinal canal and neural foramina are adequate. Impression: 1. There is mild lateral recess stenosis bilaterally somewhat greater on the left at C6-7 by bulge/protrusions superimposed on minimal disc osteophyte complex, also mild spinal stenosis on the order of 8 mm at C5-C6 and to a lesser degree at C4-5. There is mild narrowing the left C6-7 neural foramen. There is mild disc desiccation C4-5 to C6-7, mild spondylosis. FINAL DIAGNOSIS Problems Medical Problems: (1) Transient ischemic attack Status: Acute Brief Hospital Course Mr. Costello is a 47 old [sex] who presented with [cervical radiculopathy ] CONDITION AT DISCHARGE: Improved Discharge Medications Current Medications Aspirin ([facility] Aspirin) 325 mg 1X ONCE PO Last administered on 02/19/18at 22: 20; Start 02/19/18 at 16:30; Stop 02/19/18 at 16:38; Status DC Acetaminophen (Tylenol) 650 mg PRN Q6HRS PRN PO FEVER; Start 02/19/18 at 16:30 Ondansetron HCl (Zofran) 4 mg PRN Q6HRS PRN IV NAUSEA/VOMITING; Start at 16:30 Morphine Sulfate (Morphine Sulfate) 2 mg PRN Q2HR PRN IV MODERATE TO SEVERE PAIN; Start 02/19/18 at 16:30 Tramadol HCl (Ultram) 50 mg PRN Q6HRS PRN PO MILD TO MODERATE PAIN; Start at 16:30 Docusate Sodium (Colace) 100 mg PRN DAILY PRN PO CONSTIPATION; Start 02/19/18 at 16:30 Labetalol HCl (Normodyne Iv Push) 20 mg PRN Q2HR PRN IVP HYPERTENSION, SEE COMMENTS; Start 02/19/18 at 16:30 Enoxaparin Sodium (Lovenox 40mg Syringe) 40 mg Q24H SQ Last administered on at 22:20; Start 02/19/18 at 17:00 Aspirin (Ecotrin) 325 mg DAILYWBKFT PO Last administered on 02/20/18at 08:32; Start 02/20/18 at 08:00 Vital Signs Vital Signs Date Time Temp Pulse Resp B/P (MAP) Pulse Ox O2 Delivery O2 Flow Rate FiO2 02/20/18 11:11 98.3 70 17 139/83 (101) 95 Room Air 98.3 Labs Laboratory Tests Test 02/19/18 13:54 02/19/18 13:55 02/19/18 14:04 02/20/18 04:20 Glucose (Fingerstick) 135 mg/dL (70-99) White Blood Count 7.2 x10^3/uL (4.0-11.0) 7.2 x10^3/uL (4.0-11.0) Red Blood Count 4.94 x10^6/uL (4.30-5.70) 4.97 x10^6/uL (4.30-5.70) Hemoglobin 15.7 g/dL (13.0-17.5) 15.4 g/dL (13.0-17.5) Hematocrit 43.8 % (39.0-53.0) 43.9 % (39.0-53.0) Mean Corpuscular Volume 89 fL (79-100) 88 fL (79-100) Mean Corpuscular Hemoglobin 32 pg (25-35) 31 pg (25-35) Mean Corpuscular Hemoglobin Concent 36 g/dL (31-37) 35 g/dL (31-37) Red Cell Distribution Width 12.8 % (11.5-14.5) 12.7 % (11.5-14.5) Platelet Count 296 x10^3/uL (140-400) 264 x10^3/uL (140-400) Prothrombin Time 13.1 SEC (11.7-14.0) Prothromb Time International Ratio 1.0 (0.8-1.1) Activated Partial Thromboplast Time 31 SEC (24-38) Sodium Level 138 mmol/L (136-145) 140 mmol/L (136-145) Potassium Level 3.5 mmol/L (3.5-5.1) 3.7 mmol/L (3.5-5.1) Chloride Level 103 mmol/L (98-107) 103 mmol/L (98-107) Carbon Dioxide Level 23 mmol/L (21-32) 24 mmol/L (21-32) Anion Gap 12 (6-14) 18 mmol/L (6-14) 13 (6-14) Blood Urea Nitrogen 15 mg/dL (8-26) 15 mg/dL (8-26) Creatinine 0.8 mg/dL (0.7-1.3) 0.9 mg/dL (0.7-1.3) Estimated GFR (Cockcroft-Gault) 103.2 90.1 Glucose Level 141 mg/dL (70-99) 141 mg/dL (70-99) 122 mg/dL (70-99) Calcium Level 8.8 mg/dL (8.5-10.1) 8.8 mg/dL (8.5-10.1) Bedside Hemoglobin 14.6 g/dL (14-18) Bedside Hematocrit 43 % (37-52) Bedside Sodium 140 mmol/L (135-145) Bedside Potassium 3.5 mmol/L (3.5-5.0) Bedside Chloride 104 mmol/L (98-110) Bedside Total CO2 22 mmol/L (23-32) Bedside Blood Urea Nitrogen 14 mg/dL (8-26) Bedside Creatinine 0.7 mg/dL (0.5-1.4) Bedside Ionized Calcium (Radha) 1.16 mmol/L (1.13-1.32) Neutrophils (%) (Auto) 50 % (31-73) Lymphocytes (%) (Auto) 39 % (24-48) Monocytes (%) (Auto) 8 % (0-9) Eosinophils (%) (Auto) 3 % (0-3) Basophils (%) (Auto) 1 % (0-3) Neutrophils # (Auto) 3.6 x10^3uL (1.8-7.7) Lymphocytes # (Auto) 2.8 x10^3/uL (1.0-4.8) Monocytes # (Auto) 0.6 x10^3/uL (0.0-1.1) Eosinophils # (Auto) 0.2 x10^3/uL (0.0-0.7) Basophils # (Auto) 0.0 x10^3/uL (0.0-0.2) Triglycerides Level 249 mg/dL (0-150) Cholesterol Level 187 mg/dL (0-200) LDL Cholesterol, Calculated 102 mg/dL (0-100) VLDL Cholesterol, Calculated 50 mg/dL (0-40) Non-HDL Cholesterol Calculated 152 mg/dL (0-129) HDL Cholesterol 35 mg/dL (40-60) Cholesterol/HDL Ratio 5.3 Laboratory Tests Test 02/20/18 04:20 White Blood Count 7.2 x10^3/uL (4.0-11.0) Red Blood Count 4.97 x10^6/uL (4.30-5.70) Hemoglobin 15.4 g/dL (13.0-17.5) Hematocrit 43.9 % (39.0-53.0) Mean Corpuscular Volume 88 fL (79-100) Mean Corpuscular Hemoglobin 31 pg (25-35) Mean Corpuscular Hemoglobin Concent 35 g/dL (31-37) Red Cell Distribution Width 12.7 % (11.5-14.5) Platelet Count 264 x10^3/uL (140-400) Neutrophils (%) (Auto) 50 % (31-73) Lymphocytes (%) (Auto) 39 % (24-48) Monocytes (%) (Auto) 8 % (0-9) Eosinophils (%) (Auto) 3 % (0-3) Basophils (%) (Auto) 1 % (0-3) Neutrophils # (Auto) 3.6 x10^3uL (1.8-7.7) Lymphocytes # (Auto) 2.8 x10^3/uL (1.0-4.8) Monocytes # (Auto) 0.6 x10^3/uL (0.0-1.1) Eosinophils # (Auto) 0.2 x10^3/uL (0.0-0.7) Basophils # (Auto) 0.0 x10^3/uL (0.0-0.2) Sodium Level 140 mmol/L (136-145) Potassium Level 3.7 mmol/L (3.5-5.1) Chloride Level 103 mmol/L (98-107) Carbon Dioxide Level 24 mmol/L (21-32) Anion Gap 13 (6-14) Blood Urea Nitrogen 15 mg/dL (8-26) Creatinine 0.9 mg/dL (0.7-1.3) Estimated GFR (Cockcroft-Gault) 90.1 Glucose Level 122 mg/dL (70-99) Calcium Level 8.8 mg/dL (8.5-10.1) Triglycerides Level 249 mg/dL (0-150) Cholesterol Level 187 mg/dL (0-200) LDL Cholesterol, Calculated 102 mg/dL (0-100) VLDL Cholesterol, Calculated 50 mg/dL (0-40) Non-HDL Cholesterol Calculated 152 mg/dL (0-129) HDL Cholesterol 35 mg/dL (40-60) Cholesterol/HDL Ratio 5.3 Allergies Allergies Coded Allergies Type Severity Reaction Last Updated Verified No Known Drug Allergies 02/19/18 No Disposition/Orders: D/C to Home Patient Instructions see pcp next week GILLES BRENNAN MD Feb 20, 2018 15:32
--- NOTE | 2018-02-20 15:33 | DISCH ---
DISCHARGE INSTRUCTIONS Condition on Discharge Condition on Discharge: Stable Activity After Discharge Activity Instructions for Disc: Activity as tolerated Lifting Instructions after Dis: No heavy lifting, No pulling or pushing Exercise Instruction after Dis: Walk 10 min, 3 x per day Driving Instructions after Dis: Do not drive today Diet after Discharge Diet after Discharge: Cardiac Checks after Discharge Checks after discharge: Check blood press - daily Contacting the DRFrancie after DC Call your doctor for: If your condition worsens Warfarin Follow-Up Warfarin Follow UP: see pcp next week GILLES BRENNAN MD Feb 20, 2018 15:33
[2018-02-20] MEDS ORDERED: ASPI325T11 PO (15:35)
[2018-02-20] MEDS ORDERED: ACET325T9 PO (15:35)
--- NOTE | 2018-02-20 16:41 | PDOC ---
PROGRESS NOTES Assessment Problems Medical Problems: (1) Transient ischemic attack Status: Acute Transient numbness in the entire left upper extremity unlikely to be due to organic neurological disease, workup negative Mild cervical spondylosis Plan Okay for discharge Follow-up with me as needed Follow-up with a primary physician regarding treatment of cholesterol but no immediate treatment needed as there is no evidence that he had a stroke or transient ischemic attack Subjective No complaints Objective Vital Signs Date Time Temp Pulse Resp B/P (MAP) Pulse Ox O2 Delivery O2 Flow Rate FiO2 02/20/18 15:10 98.2 76 17 127/74 (91) 96 Room Air 98.2 Intake and Output 02/20/18 07:00 Intake Total 400 ml Balance 400 ml Intake Oral 400 ml # Voids 9 PHYSICAL EXAM Alert. Oriented to time, place and person. (In Azerbaijani) PERRL. EOMI. CN: no focal findings. Muscle tone: normal. Muscle strength: 5/5 DTR: 2+ Plantar reflex: Flexor Gait: Normal. Sensory exam: no abnormal findings. No cerebellar signs elicited. Review of Relevant I have reviewed the following items oniel (where applicable) has been applied. Labs Laboratory Tests Test 02/19/18 13:54 02/19/18 13:55 02/19/18 14:04 02/20/18 04:20 Glucose (Fingerstick) 135 mg/dL (70-99) White Blood Count 7.2 x10^3/uL (4.0-11.0) 7.2 x10^3/uL (4.0-11.0) Red Blood Count 4.94 x10^6/uL (4.30-5.70) 4.97 x10^6/uL (4.30-5.70) Hemoglobin 15.7 g/dL (13.0-17.5) 15.4 g/dL (13.0-17.5) Hematocrit 43.8 % (39.0-53.0) 43.9 % (39.0-53.0) Mean Corpuscular Volume 89 fL (79-100) 88 fL (79-100) Mean Corpuscular Hemoglobin 32 pg (25-35) 31 pg (25-35) Mean Corpuscular Hemoglobin Concent 36 g/dL (31-37) 35 g/dL (31-37) Red Cell Distribution Width 12.8 % (11.5-14.5) 12.7 % (11.5-14.5) Platelet Count 296 x10^3/uL (140-400) 264 x10^3/uL (140-400) Prothrombin Time 13.1 SEC (11.7-14.0) Prothromb Time International Ratio 1.0 (0.8-1.1) Activated Partial Thromboplast Time 31 SEC (24-38) Sodium Level 138 mmol/L (136-145) 140 mmol/L (136-145) Potassium Level 3.5 mmol/L (3.5-5.1) 3.7 mmol/L (3.5-5.1) Chloride Level 103 mmol/L (98-107) 103 mmol/L (98-107) Carbon Dioxide Level 23 mmol/L (21-32) 24 mmol/L (21-32) Anion Gap 12 (6-14) 18 mmol/L (6-14) 13 (6-14) Blood Urea Nitrogen 15 mg/dL (8-26) 15 mg/dL (8-26) Creatinine 0.8 mg/dL (0.7-1.3) 0.9 mg/dL (0.7-1.3) Estimated GFR (Cockcroft-Gault) 103.2 90.1 Glucose Level 141 mg/dL (70-99) 141 mg/dL (70-99) 122 mg/dL (70-99) Calcium Level 8.8 mg/dL (8.5-10.1) 8.8 mg/dL (8.5-10.1) Bedside Hemoglobin 14.6 g/dL (14-18) Bedside Hematocrit 43 % (37-52) Bedside Sodium 140 mmol/L (135-145) Bedside Potassium 3.5 mmol/L (3.5-5.0) Bedside Chloride 104 mmol/L (98-110) Bedside Total CO2 22 mmol/L (23-32) Bedside Blood Urea Nitrogen 14 mg/dL (8-26) Bedside Creatinine 0.7 mg/dL (0.5-1.4) Bedside Ionized Calcium (Radha) 1.16 mmol/L (1.13-1.32) Neutrophils (%) (Auto) 50 % (31-73) Lymphocytes (%) (Auto) 39 % (24-48) Monocytes (%) (Auto) 8 % (0-9) Eosinophils (%) (Auto) 3 % (0-3) Basophils (%) (Auto) 1 % (0-3) Neutrophils # (Auto) 3.6 x10^3uL (1.8-7.7) Lymphocytes # (Auto) 2.8 x10^3/uL (1.0-4.8) Monocytes # (Auto) 0.6 x10^3/uL (0.0-1.1) Eosinophils # (Auto) 0.2 x10^3/uL (0.0-0.7) Basophils # (Auto) 0.0 x10^3/uL (0.0-0.2) Triglycerides Level 249 mg/dL (0-150) Cholesterol Level 187 mg/dL (0-200) LDL Cholesterol, Calculated 102 mg/dL (0-100) VLDL Cholesterol, Calculated 50 mg/dL (0-40) Non-HDL Cholesterol Calculated 152 mg/dL (0-129) HDL Cholesterol 35 mg/dL (40-60) Cholesterol/HDL Ratio 5.3 Laboratory Tests Test 02/20/18 04:20 White Blood Count 7.2 x10^3/uL (4.0-11.0) Red Blood Count 4.97 x10^6/uL (4.30-5.70) Hemoglobin 15.4 g/dL (13.0-17.5) Hematocrit 43.9 % (39.0-53.0) Mean Corpuscular Volume 88 fL (79-100) Mean Corpuscular Hemoglobin 31 pg (25-35) Mean Corpuscular Hemoglobin Concent 35 g/dL (31-37) Red Cell Distribution Width 12.7 % (11.5-14.5) Platelet Count 264 x10^3/uL (140-400) Neutrophils (%) (Auto) 50 % (31-73) Lymphocytes (%) (Auto) 39 % (24-48) Monocytes (%) (Auto) 8 % (0-9) Eosinophils (%) (Auto) 3 % (0-3) Basophils (%) (Auto) 1 % (0-3) Neutrophils # (Auto) 3.6 x10^3uL (1.8-7.7) Lymphocytes # (Auto) 2.8 x10^3/uL (1.0-4.8) Monocytes # (Auto) 0.6 x10^3/uL (0.0-1.1) Eosinophils # (Auto) 0.2 x10^3/uL (0.0-0.7) Basophils # (Auto) 0.0 x10^3/uL (0.0-0.2) Sodium Level 140 mmol/L (136-145) Potassium Level 3.7 mmol/L (3.5-5.1) Chloride Level 103 mmol/L (98-107) Carbon Dioxide Level 24 mmol/L (21-32) Anion Gap 13 (6-14) Blood Urea Nitrogen 15 mg/dL (8-26) Creatinine 0.9 mg/dL (0.7-1.3) Estimated GFR (Cockcroft-Gault) 90.1 Glucose Level 122 mg/dL (70-99) Calcium Level 8.8 mg/dL (8.5-10.1) Triglycerides Level 249 mg/dL (0-150) Cholesterol Level 187 mg/dL (0-200) LDL Cholesterol, Calculated 102 mg/dL (0-100) VLDL Cholesterol, Calculated 50 mg/dL (0-40) Non-HDL Cholesterol Calculated 152 mg/dL (0-129) HDL Cholesterol 35 mg/dL (40-60) Cholesterol/HDL Ratio 5.3 Medications Current Medications Aspirin ([facility] Aspirin) 325 mg 1X ONCE PO Last administered on 02/19/18at 22: 20; Start 02/19/18 at 16:30; Stop 02/19/18 at 16:38; Status DC Acetaminophen (Tylenol) 650 mg PRN Q6HRS PRN PO FEVER; Start 02/19/18 at 16:30 Ondansetron HCl (Zofran) 4 mg PRN Q6HRS PRN IV NAUSEA/VOMITING; Start at 16:30 Morphine Sulfate (Morphine Sulfate) 2 mg PRN Q2HR PRN IV MODERATE TO SEVERE PAIN; Start 02/19/18 at 16:30 Tramadol HCl (Ultram) 50 mg PRN Q6HRS PRN PO MILD TO MODERATE PAIN; Start at 16:30 Docusate Sodium (Colace) 100 mg PRN DAILY PRN PO CONSTIPATION; Start 02/19/18 at 16:30 Labetalol HCl (Normodyne Iv Push) 20 mg PRN Q2HR PRN IVP HYPERTENSION, SEE COMMENTS; Start 02/19/18 at 16:30 Enoxaparin Sodium (Lovenox 40mg Syringe) 40 mg Q24H SQ Last administered on at 22:20; Start 02/19/18 at 17:00 Aspirin (Ecotrin) 325 mg DAILYWBKFT PO Last administered on 02/20/18at 08:32; Start 02/20/18 at 08:00 Active Scripts Active Tylenol (Acetaminophen) 325 Mg Tablet 650 Mg PO PRN Q6HRS PRN 30 Days Aspirin Ec (Aspirin) 325 Mg Tablet.dr 325 Mg PO DAILYWBKFT 30 Days Vitals/I & O Vital Sign - Last 24 Hours 02/19/18 02/19/18 02/19/18 02/19/18 16:47 17:53 19:56 20:00 Temp 98.7 98.2 98.7 98.2 Pulse 90 73 Resp 20 20 B/P (MAP) 122/82 (95) 148/78 (101) Pulse Ox 97 98 O2 Delivery Room Air Room Air Room Air Room Air 02/19/18 02/20/18 02/20/18 02/20/18 23:12 03:12 07:05 08:00 Temp 97.9 98.1 97.9 97.9 98.1 97.9 Pulse 66 63 66 Resp 20 20 18 B/P (MAP) 137/47 (77) 121/71 (88) 124/74 (91) Pulse Ox 98 98 98 O2 Delivery Room Air Room Air Room Air Room Air 02/20/18 02/20/18 11:11 15:10 Temp 98.3 98.2 98.3 98.2 Pulse 70 76 Resp 17 17 B/P (MAP) 139/83 (101) 127/74 (91) Pulse Ox 95 96 O2 Delivery Room Air Room Air Intake and Output 02/19/18 02/19/18 02/20/18 15:00 23:00 07:00 Intake Total 0 ml 400 ml Balance 0 ml 400 ml Images Brain MRI: There is some motion degradation. There is no evidence of recent infarct or cytotoxic edema. The ventricles, sulci, and cisterns are within normal limits in size and configuration. There is no significant midline shift, intraaxial mass effect, or focal abnormal extra-axial fluid collection. There is no significant signal abnormality including hemosiderin deposition of the brain parenchyma. There is preservation of the major intracranial flow-voids at the skull base. The mastoid air cells are aerated. The cerebellar tonsils are normal in location. There is no significant abnormality of the pineal gland or pituitary gland. There is [id number] right greater than left maxillary sinus mucosal thickening near the floors, also patchy mild ethmoid air cell mucosal thickening greater on the left. There are likely mucous retention cysts near the floors of the maxillary sinuses, up to about 1.3 cm of the right. Frontal sinus is not significantly pneumatized. There is preserved marrow signal of the clivus. Impression: 1. There is no evidence of recent infarct or intracranial mass effect, no significant intracranial abnormality. Cervical MRI: Cervical cord caliber is within normal limits without defined or expansile signal change, some artifact of the cord which limits accurate evaluation for subtle signal change. There is no significant marrow edema. Cervical vertebral body stature and AP alignment are within within normal limits. There is mild disc desiccation C4-5 to C6-7, very mild narrowing of the C6-7 intervertebral disc space. There is likely posterior annular tear at C3-4-5. There is no significant abnormality of the cervical medullary junction. C2-C3: Spinal canal and neural foramina are adequate. C3-C4: Neural foramina and spinal canal are adequate. C4-C5: There is right facet hypertrophic change. There is negligible disc osteophyte complex. Central canal is minimally narrowed to 9 to 10 mm in part on a developmental basis in combination with minimal disc osteophyte complex. Neural foramina are overall adequate. C5-C6: There is minimal disc osteophyte complex and shallow central protrusion, central canal narrowed to about 8 mm. Neural foramina are adequate. C6-C7: There is disc osteophyte complex, superimposed bulge/protrusions more eccentric to the lateral recesses bilaterally. Central canal is borderline about 10 mm, mild lateral recess stenosis bilaterally somewhat greater on the left. There is mild uncovertebral degenerative change. There is mild narrowing of the left neural foramen, right neural foramen overall adequate. C7-T1: Spinal canal and neural foramina are adequate. Impression: 1. There is mild lateral recess stenosis bilaterally somewhat greater on the left at C6-7 by bulge/protrusions superimposed on minimal disc osteophyte complex, also mild spinal stenosis on the order of 8 mm at C5-C6 and to a lesser degree at C4-5. There is mild narrowing the left C6-7 neural foramen. There is mild disc desiccation C4-5 to C6-7, mild spondylosis. Carotid Doppler studies: Report not back yet, images reviewed, no significant stenosis Echocardiogram: Pending CARLY MARTINEZ MD Feb 20, 2018 16:41
--- NOTE | 2018-02-20 16:42 | RAD ---
Carotid ultrasound, 02/20/2018: HISTORY: CVA with patent foramen ovale Duplex evaluation of the carotid arteries and neck was performed including grayscale, color-flow and spectral Doppler analysis. There is only minimal intimal thickening in the carotid arteries. No significant focal plaque formation is seen. The peak systolic velocity in the right internal carotid artery is 73 cm per sec with an end-diastolic velocity of 20 cm/s. The peak systolic velocity in the left internal carotid artery is 90 cm/s with an end-diastolic velocity of 23 cm/s. These Doppler findings do not suggest significant stenosis. Antegrade flow is present in both vertebral arteries in the neck. IMPRESSION: No duplex evidence of a significant carotid stenosis in the neck. Note: Stenosis calculations for CT, MRA and conventional angiography are based upon determination of the distal ICA diameter in accordance with the NASCET methodology. Stenosis calculations for Doppler studies are derived from validated velocity criteria which are known to correlate with NASCET methodology of determining stenosis. Electronically signed by: Shaq Schmidt MD (02/20/2018 4:40 PM) [facility]
--- NOTE | 2018-02-20 16:45 | CARD ---
MR#: [id number] Date of Study: 02/20/2018 Ordering Physician: CARLY MARTINEZ, Referring Physician: GLENDA JONES Tech: Nayeli Ballesteros RDCS APPROVED REPORT EXAM: Two-dimensional and M-mode echocardiogram with Doppler and color Doppler. Other Information Quality : Good INDICATION CVA/TIA 2D DIMENSIONS RVDd3.2 (2.9-3.5cm)Left Atrium(2D)3.8 (1.6-4.0cm) IVSd1.3 (0.7-1.1cm)Aortic Root(2D)2.7 (2.0-3.7cm) LVDd4.8 (3.9-5.9cm)LVOT Diameter2.1 (1.8-2.4cm) PWd1.1 (0.7-1.1cm)LVDs3.2 (2.5-4.0cm) FS (%) 34.1 %SV69.2 ml LVEF(%)63.0 (>50%) Aortic Valve AoV Peak Kraig.196.8cm/sAoV VTI33.6cm AO Peak GR.15.5mmHgLVOT Peak Kraig.150.3cm/s LVOT VTI 29.43cmAO Mean GR.8mmHg IZABELLA (VMAX)2.33cj4UUI (VTI)2.97cm2 Mitral Valve MV E Jzrpaarf93.1cm/sMV DECEL HDMO356xl MV A Axasiiuy67.8cm/sMV VBM60ce E/A Ratio0.9MVA (PHT)4.19cm2 TDI E/Lateral E'8.5E/Medial E'11.6 Tricuspid Valve TR P. Rdkwbbai227so/sRAP [id number] TR Peak Gr.84ifQfVVIE40bqFd Pulmonary Vein S1 Ybitfpnm40.7cm/sD2 Jkyyzxst73.1cm/s LEFT VENTRICLE The left ventricle is normal size. There is mild asymmetric septal hypertrophy. The left ventricular systolic function is normal and the ejection fraction is within normal range. The Ejection Fraction i s 63%. There is normal LV segmental wall motion. Transmitral Doppler flow pattern is Grade I-abnormal relaxation pattern. RIGHT VENTRICLE The right ventricle is normal size. The right ventricular systolic function is normal. ATRIA The left atrium size is normal. The right atrium size is normal. The interatrial septum is intact wit h no evidence for an atrial septal defect or patent foramen ovale as noted on 2-D or Doppler imaging. AORTIC VALVE The aortic valve is normal in structure and function. Doppler and Color Flow revealed no significant aortic regurgitation. There is no significant aortic valvular stenosis. MITRAL VALVE The mitral valve is normal in structure and function. There is no evidence of mitral valve prolapse. There is no mitral valve stenosis. Doppler and Color Flow revealed no mitral valve regurgitation note d. TRICUSPID VALVE The tricuspid valve is normal in structure and function. Doppler and Color Flow revealed physiologica l tricuspid regurgitation. The PA pressure was estimated at 20 mmHg. There is no tricuspid valve sten osis. PULMONIC VALVE The pulmonary valve is normal in structure and function. Doppler and Color Flow revealed no pulmonic valvular regurgitation. There is no pulmonic valvular stenosis. GREAT VESSELS The aortic root is normal in size. The ascending aorta is normal in size. The IVC is normal in size a nd collapses >50% with inspiration. PERICARDIAL EFFUSION There is no evidence of significant pericardial effusion. Critical Notification Critical Value: No <Conclusion> The left ventricular systolic function is normal and the ejection fraction is within normal range. T he Ejection Fraction is 63%. Transmitral Doppler flow pattern is Grade I-abnormal relaxation pattern. The left atrium size is normal. The right atrium size is normal. The aortic valve is normal in structure and function. The mitral valve is normal in structure and function. Doppler and Color Flow revealed physiological tricuspid regurgitation. The PA pressure was estimated at 20 mmHg. The pulmonary valve is normal in structure and function. There is no evidence of significant pericardial effusion. Signed by : Artur Estrada MD Electronically Approved : 02/20/2018 16:44:31
== END 2018-02-20 17:04 | disposition home or self-care (01) ==
LOC: ER 13:18 → 6 SOUTH 15:00
PROVIDERS: ADMIT Internal Medicine; ATTEND Internal Medicine
DX: G45.9 Transient cerebral ischemic attack, unspecified (principal); R20.0 Anesthesia of skin; M47.22 Other spondylosis with radiculopathy, cervical region; M25.78 Osteophyte, vertebrae; I10 Essential (primary) hypertension; F17.210 Nicotine dependence, cigarettes, uncomplicated; Z82.49 Family history of ischemic heart disease and other diseases of the circulatory system; Z79.82 Long term (current) use of aspirin
CPT/HCPCS: 36415; 70450; 70551; 72141; 80047; 80048; 80061; 82962; 85025; 85027; 85610; 85730; 92610; 93005; 93306; 93880; 96372; 99285; G0378; G0379; J1650